=== PATIENT | female | born 1975 | race Caucasian/White ===

== ENCOUNTER 2019-09-09 14:52 | Outpatient (CLI) | payer OTHER, SELFPAY ==
--- NOTE | ~2019-09-09 | MR_ITS ---
EXAMINATION: MR brain/brain stem wo/w con EXAM DATE: 09/09/2019 15:52 INDICATION: Migraine headaches with increasing frequency. TECHNIQUE: Magnetic resonance imaging (MRI) of the brain/brain stem obtained without contrast. Sagit jacques T1, axial diffusion, gradient echo (T2*), T1, T2, FLAIR sequences obtained. Patient was then inj ected with 19 cc intravenous Multihance contrast. Axial and coronal postcontrast T1 weighted sequence s obtained. Comparison is made to prior examination from 07/19/2004. FINDINGS: There are no areas of restricted diffusion to suggest acute infarction. There is no acute hemorrhage seen on the T2*, a hemosiderin sensitive sequence. No intraparenchymal brain mass. The ve ntricles are normal in size. There are no extra-axial collections. Flow voids are seen in the cereb ral arteries on the T2-weighted sequences consistent with their expected patency. The orbits are unr emarkable. Soft tissue is unremarkable. There are no areas of abnormal enhancement on the postcont rast images. Small left maxillary sinus retention cyst. IMPRESSION: 1. Unremarkable brain MRI examination. Reviewed, dictated and finalized at location B. 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
[2019-09-09 15:40] LABS: Blood Urea Nitrogen 9 mg/dL (8-26); Estimated Glomerular Filt Rate > 60
== END 2019-09-09 14:53 | disposition home or self-care (01) ==
PROVIDERS: PCP Internal Medicine; Visit Provider Nurse Practitioner
DX: R51 Headache (principal)
CPT/HCPCS: 70553; A9577

== ENCOUNTER 2020-09-06 16:48 | Outpatient (CLI) | payer OTHER, SELFPAY ==
--- NOTE | ~2020-09-06 | MM_ITS ---
EXAMINATION: MM screening [facility] w jarred HISTORY: Screening TECHNIQUE: Craniocaudal and mediolateral oblique 3-D tomosynthesis images were obtained and synthetic 2-D images were generated. CAD analysis was submitted and interpreted. COMPARISON: Comparison to multiple prior studies sequentially, with oldest reviewed study dated 11/20. BREAST PARENCHYMAL COMPOSITION: There are scattered areas of fibroglandular density. FINDINGS: There is no evidence of suspicious mass, calcification, or architectural distortion to sugg est malignancy in either breast. There has been no suspicious interval change. IMPRESSION: 1. No mammographic evidence of malignancy. 2. Recommend routine screening mammography in one year. BI-RADS Category 1: Negative Reviewed, dictated and finalized at location A. 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
== END 2020-09-06 16:49 | disposition home or self-care (01) ==
LOC: ANHIMG 16:50
PROVIDERS: PCP Internal Medicine; Visit Provider Obstetrics & Gynecology
DX: Z12.31 Encounter for screening mammogram for malignant neoplasm of breast (principal)
CPT/HCPCS: 77063; 77067

== ENCOUNTER 2021-10-24 17:31 | Outpatient (CLI) | payer BC, OTHER, SELFPAY ==
--- NOTE | ~2021-10-24 | MM_ITS ---
EXAMINATION: MM screening [facility] BI w jarred HISTORY: Screening mammogram TECHNIQUE: Craniocaudal and mediolateral oblique 3-D tomosynthesis images were obtained and synthetic 2-D images were generated. CAD analysis was submitted and interpreted. COMPARISON: 09/06/2020, 05/07/2019 BREAST PARENCHYMAL COMPOSITION: There are scattered areas of fibroglandular density. FINDINGS: There is no suspicious mass, calcification, or architectural distortion to suggest malignan cy in either breast. There has been no suspicious interval change. IMPRESSION: 1. No mammographic evidence of malignancy. 2. Recommend routine screening mammography in one year. BI-RADS Category 1: Negative Reviewed, dictated and finalized at location A.
== END 2021-10-24 17:32 | disposition home or self-care (01) ==
LOC: ANHIMG 17:33
PROVIDERS: PCP Internal Medicine; Visit Provider Obstetrics & Gynecology
DX: Z12.31 Encounter for screening mammogram for malignant neoplasm of breast (principal)
CPT/HCPCS: 77063; 77067

== ENCOUNTER 2023-07-08 07:39 | Day surgery (SDC) | payer OTHER, SELFPAY ==
[2023-05-28 14:08] VITALS: BMI 35.9
[2023-06-24 11:05] VITALS: BMI 28.8
--- NOTE | 2023-07-03 12:57 | PM.HPGS ---
History of Present Illness History of Present Illness Consent: Risks, benefits, and alternatives have been discussed and questions answered. Patient agrees to proceed with procedure. Chief complaint: Z12.11 Screening neoplasm of colon Narrative: Tejal Arreaga is a 48 year old female Referred for colon cancer screening. Review of Systems Review of Systems: All systems reviewed & are unremarkable except as noted in HPI and below PMFSH Past Medical History Medical History Corns and callosities Migraine headache Surgical History Surgical History H/O foot surgery December 2018 S/P bilateral breast reduction S/P endometrial ablation Family History Family History Father Hypertension Carcinoma of colon Family history of irritable bowel syndrome Mother Family history of elevated blood lipids History of low potassium Grandparent Family history of coronary artery disease, Onset Age: 70 Diabetes mellitus Social History Social History Smoking status: Never smoker Second hand tobacco smoke exposure: No Alcohol intake: current Substance use: never Substance use type: does not use Lack of Transportation: No Lack of Food: Never True Current Housing: I Have Housing Concerned About Future Housing: No Difficulty Paying Gas/Electric Bills: No Difficulty Paying for Meds: No Currently Unemployed: No Education: Bachelor's Degree Living arrangements: with family Gender identity (if verbalized by the patient): Female Spiritual care concerns: No Meds Home Medications and Allergies Home Medications Medication Instructions Recorded Confirmed Type ubrogepant 50 mg tablet (Ubrelvy) 50 mg PO ONCE 05/29/23 06/24/23 History Allergies Allergy/AdvReac Type Severity Reaction Status Date / Time No Known Allergies Allergy Verified 07/08/23 08:40 Exam Resp: Auscultation: clear to auscultation bilaterally Cardio: Rate: regular rate Rhythm: regular rhythm GI: GI Palp: Yes Soft to palpation and No Tenderness to palpation present (GI) Assessment and Plan Assessment and plan (1) Colon cancer screening: Code(s): Z12.11 - Encounter for screening for malignant neoplasm of colon Status: Acute Assessment and Plan: Colonoscopy with possible biopsy or polypectomy or cautery or injection of substances.
[2023-07-08 08:42] VITALS: BP 110/84; PULSE 78; RESP 16; TEMP 36.6; O2SAT 100
[2023-07-08] MEDS: LACTATED RINGERS 1,000 ML 150 ML IV CONT (08:54)
--- NOTE | 2023-07-08 09:06 | P.PNAN_ITS ---
Anes - Initial Pre Proc Eval Procedure: Operation Date: 07/08/23 10:00 Proposed Procedures p Screening Colonoscopy - Herman Momin MD Date/Time: 07/08/23 09:06 Surgeon: Herman Momin MD Pre Op Diagnosis: Z12.11 Screening neoplasm of colon Patient Data Age: 48 Gender: F Height: 1.7 m Weight: 84 kg Last Vital Signs Temp 36.6 C 07/08/23 08:42 Pulse 78 07/08/23 08:42 Resp 16 07/08/23 08:42 BP 110/84 07/08/23 08:42 Pulse Ox 100 07/08/23 08:42 O2 Del Method Room Air 07/08/23 08:42 Allergies Allergy/AdvReac Type Severity Reaction Status Date / Time No Known Allergies Allergy Verified 07/08/23 08:40 Home Medications Medication Instructions Recorded Confirmed Type ubrogepant 50 mg tablet (Ubrelvy) 50 mg PO ONCE 05/29/23 06/24/23 History Patient hx anesthesia problems: none Family hx anesthesia problems: none Results Review: All pre-operative results and documents have been reviewed as part of the pre- operative evaluation. [facility] Past Medical History Medical History Corns and callosities Migraine headache Surgical History Surgical History H/O foot surgery December 2018 S/P bilateral breast reduction S/P endometrial ablation Family History Family History Father Hypertension Carcinoma of colon Family history of irritable bowel syndrome Mother Family history of elevated blood lipids History of low potassium Grandparent Family history of coronary artery disease, Onset Age: 70 Diabetes mellitus Social History Social History Smoking status: Never smoker Second hand tobacco smoke exposure: No Alcohol intake: current Substance use: never Substance use type: does not use Lack of Transportation: No Lack of Food: Never True Current Housing: I Have Housing Concerned About Future Housing: No Difficulty Paying Gas/Electric Bills: No Difficulty Paying for Meds: No Currently Unemployed: No Education: Bachelor's Degree Living arrangements: with family Gender identity (if verbalized by the patient): Female Spiritual care concerns: No Anes - Eval Final PreProcedure Day of Procedure 07/08/23 09:06 Patient weight: overweight Heart: regular rate and rhythm Lungs: clear to auscultation Airway: Mallampati scale class II Neurological: alert and oriented Last oral intake: >/= 8 hours ASA classification: II Emergent: no Anesthetic plan: proceed Anesthesia type and monitoring: general GIVS and standard monitoring Results Review: All pre-operative results and documents have been reviewed as part of the pre- operative evaluation. Informed Consent: The patient's anesthetic plan and its attendant risks and benefits were discusse d with the patient/family/POA. Questions were solicited and answers provided to the satisfaction of the patient/family/POA.
[2023-07-08 10:11] VITALS: BP 105/74; PULSE 72; RESP 16; O2SAT 100
[2023-07-08 10:21] VITALS: BP 122/79; PULSE 78; RESP 15; O2SAT 100
--- NOTE | 2023-07-08 10:26 | WPDANESPN ---
Anes - Prog Note Post-Op Date/Time: 07/08/23 10:26 Cardiovascular status: normal Respiratory status: normal Airway patency: baseline Mental status: baseline Post-Op hydration status: normal Vital Signs: Last Vital Signs Temp 36.6 C 07/08/23 08:42 Pulse 78 07/08/23 10:21 Resp 15 07/08/23 10:21 BP 122/79 07/08/23 10:21 Pulse Ox 100 07/08/23 10:21 O2 Del Method Room Air 07/08/23 10:21 Pain Score (VAS): 0 I/O: Intake & Output 07/07/23 07/08/23 07/08/23 23:59 07:59 15:59 Intake Total 300 Balance 300 Patient Feedback: Patient satisfied with anesthetic care.
[2023-07-08 10:31] VITALS: BP 119/76; PULSE 80; RESP 14; O2SAT 100
== END 2023-07-08 10:41 | disposition home or self-care (01) ==
PROVIDERS: PCP Nurse Practitioner Family; Visit Provider Internal Medicine Gastroenterology
PROC: 0DJD8ZZ Inspection of Lower Intestinal Tract, Via Natural or Artificial Opening Endoscopic (ICD-10-PCS; CPT 45378; principal; 2023-07-08 10:00)
DX: Z12.11 Encounter for screening for malignant neoplasm of colon (principal)
CPT/HCPCS: 45378

== ENCOUNTER 2024-09-02 09:26 | Outpatient (CLI) | payer BC, OTHER, SELFPAY ==
--- NOTE | ~2024-09-02 | MM_ITS ---
EXAMINATION: MM screening [facility] w jarred HISTORY: Screening TECHNIQUE: Craniocaudal and mediolateral oblique 3-D tomosynthesis images were obtained and synthetic 2-D images were generated. CAD analysis was submitted and interpreted. COMPARISON: Comparison to multiple prior studies sequentially, with oldest reviewed study dated 11/20. BREAST PARENCHYMAL COMPOSITION: Not dense: There are scattered areas of fibroglandular density. FINDINGS: There is no evidence of suspicious mass, calcification, or architectural distortion to sugg est malignancy in either breast. There has been no suspicious interval change. IMPRESSION: 1. No mammographic evidence of malignancy. 2. Recommend routine screening mammography in one year. BI-RADS Category 1: Negative Reviewed, dictated and finalized at location A. CAPPER
--- OUTSIDE RECORDS SUMMARY | 2024-09-03 22:28 | XMS_ITS | Data Portability ---
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 Lab HbA1c (hemoglobin A1c), blood 2022 023 [email or web address] [facility], [address] [place] [address], [address], 3 09:27:13 CBC w/ auto diff 2022 023 [email or web address] [facility], [address] [place] [address], [place], [address], 3 09:27:13 CMP, serum or plasma 2022 023 [email or web address] [facility], [address] [place] [address], [place], [address], 3 09:27:13 lipid panel, serum 2022 023 [email or web address] [facility], [address] [place] [address] 2, [place], [address], 3 09:27:13 TSH, ultra-sensi tive, serum 2022 023 [email or web address] [facility], [address] [place] [address] 2, [place], [address], 3 09:27:13 HbA1c (hemoglobin A1c), blood 2022 023 [email or web address] [facility], [address] [place] [address] 2, [place], [address], 3 09:27:13 CBC w/ auto diff 2022 023 LUIS E [facility], [address] [place] [address], [place], [address], 3 09:14:34 CMP, serum or plasma 2022 023 [email or web address] [facility], [address] [place] [address] 2, [place], [address], 3 09:27:13 lipid panel, serum 2022 023 [email or web address] [facility], [address] [place] [address] 2, [place], [address], 3 09:27:14 TSH, ultra-sensi tive, serum 2022 023 [email or web address] [facility], [address] [place] [address], [place], [address], 3 09:27:14 Referral None recorded. Procedures colonoscopy screening (PROC) 2022 023 [email or web address] Herman Momin MD, [address], [address], [place], [address], 3 16:58:55 colonoscopy screening (PROC) 2022 LUIS E Momin MD, [address], [address], [place], [address], 3 13:07:46 Surgeries None recorded. Imaging None recorded. Medication Orders Linzess 145 mcg capsule 2022 [facility], [address], [place], [place], [id number], 3 16:15:58 ondansetron 4 mg disintegrat ing tablet 2022 [place], [address], [place], [place], [id number], 3 16:18:14 Zithromax Z-Trever 250 mg tablet 2022 023 [place] [facility], [address], [place], [place], [id number], 3 16:16:02 Patient TargetsNo targets recorded. Patient Instructions Encounter Date Encounter Id Patient Instructions Last Modified By Organization Details Last Modified Time 05/22/2023 [id number] INFLUENZA VACCIN E Recommended today, but patient declined TD/TDAP Recommended today, patient declined Ordered Patient will get at local pharmacy/health department PNEUMONIA VACCINE Ordered Recommend ed today, patient declined Patient will get at local pharmacy/health department Recomm ended at age 67 SHINGLES MAMMOGRAM: Last Mammogram __ DEXA SCAN Recommended today, but patient declined Ordered No screening indicated CERVICAL SCREENING/PELVIC EXAMINATION Recommended today, but patient declined Ordered No screening necessary patient is up to date COLORECTAL SCREENING: Last Colonoscopy Recommended today, but patient declined Ordered DEPRESSION SCREENING Negative BMI Overweight continue your current weight loss efforts NUTRITION PHYSICAL ACTIVITY minimum of 10-20 minutes of activity that causes mild breathlessness/da y minimum of 20-30 minutes activity that causes mild breathlessness/da y minimum of 30-40 minutes of activity that causes mild breathlessness/da y VISION Ordered Recommend ed today ALCOHOL USE No alcohol use Occasional/So cial Use TOBACCO USE LUNG CANCER SCREENING Non Smoker-not indicated SEXUALLY ACTIVE Yes, Patient is in monogamous relationship HEPATITIS C SCREENING Not indicated GLUCOSE SCREENING Ordered LIPID SCREENING Ordered [email or web address] Not available 05/22/2023 17:01:54 Reason for Referral None Reported. Results Created Date Observation Date Name Description Value Unit Range Abnormal Flag Note LastModifiedBy Organization Detail LastModifiedTime Result Notes None recorded. Problems Name Problem SNOMED Code Status Onset Date Resolution Date Notes Provider Name and Address Organization Details Recorded Time Prediabetes 710887911 Active 2022 Abigail carreon, [employer] 3 16:35:44 Migraine 14896480 Active 2022 ANN L[facility]pezP-C [address], [address], [place], [address], [email or web address] 3 17:29:34 Obesity 613526304 Active 2022 ANN L[facility]pezP[facility] [address], [address], [place], [address], [email or web address] 3 17:29:37 Hyperlipidemia 58675764 Active 2022 ANN L[facility]pez[facility] [address], [address], [place], [address], [email or web address] 3 17:29:45 Acute pharyngitis 106338893 Active 2022 ANN L[facility]pez[facility] [address], [address], [place], [address], [email or web address] 3 16:14:55 Chronic constipation 305219357 Active 2022 ANN L[facility]pez[facility] [address], [address], [place], [address], [email or web address] 3 16:15:14 Problem Notes None recorded. Procedures Surgical History Date Name Laterality Status Provider Name and Address Organization Details Recorded Time Breast reduction completed Not Available [facility] 10/11/2022 00:28:10 Imaging Results None recorded. Procedure Notes None recorded. Medical Equipment None Reported. Allergies No known drug allergies Medications Name Sig Start Date Stop Date Status Note LastModified by Organization Details LastModified Time azithromyci n 250 mg tablet TAKE 2 TABLETS BY MOUTH FOR 1 DAY THEN TAKE 1 TABLET BY MOUTH DAILY FOR 4 DAYS active Not Available Not Available No t Available sumatriptan 50 mg tablet 09/20 completed Not Available Not Available Not Available clotrimazol e-betametha sone 1 %-0.05 % topical cream APPLY TO SOLES OF FEET TWICE DAILY FOR 2 WEEKS 09/20 completed Not Available Not Available Not Available dexamethaso ne sodium phosphate 4 mg/mL injection solution APPLY 1ML TO AFFECTED AREAS WITH IONTOPHRE SIS 09/20 completed Not Available Not Available Not Available ondansetron 4 mg disintegrat ing tablet DISSOLVE 1 TABLET ON THE TONGUE EVERY 6 TO 8 HOURS NEEDED active Not Available Not Available No t Available Novofine 32 32 gauge x 1/4 needle DIRECTED 08/01 completed Not Available Not Available Not Available Linzess 145 mcg capsule TAKE 1 CAPSULE BY MOUTH EVERY DAY IN THE MORNING active Not Available Not Available No t Available Saxenda 3 mg/0.5 mL (18 mg/3 mL) subcutaneou s pen injector INJECT 0.6MG UNDER SKIN EVERY DAY FOR 7 DAYS,INCR EASE BY 0.6MG DAILY EVERY 7 DAYS TO TARGET 3 MG PER DAY 06/21 completed Not Available Not Available Not Available Ubrelvy 100 mg tablet Prior authoriza tion is required active Not Available Not Available No t Available ID NOW COVID-19 Test Kit TEST DIRECTED TODAY 09/20 completed Not Available Not Available Not Available Mounjaro 7.5 mg/0.5 mL subcutaneou s pen injector INJECT 7.5 MG UNDER SKIN EVERY WEEK 01/09 completed appro sera. Not Available Not Available Not Available Mounjaro 5 mg/0.5 mL subcutaneou s pen injector INJECT 5 MG UNDER SKIN EVERY WEEK 01/09 completed Not Available Not Available Not Available Mounjaro 10 mg/0.5 mL subcutaneou s pen injector Inject 10mg SQ weekly 05/22 completed Not Available Not Available Not Available Vitals Date Recorded Body mass index (BMI) Body height Oxygen saturation Oxygen saturation in Arterial blood by Pulse oximetry Heart rate Body temperature Body weight Systolic blood pressure Diastolic blood pressure Provider Name and Address Organization Details Last Updated DateTime 2 31.3 kg/m2 172.72 cm 99 % 99 % 89 /min 97.7 [degF] 51737.0 3 g 122 mm[Hg] 78 mm[Hg] Not Available [facility] 3 00:28:15 Date Recorded Body mass index (BMI) Body height Oxygen saturation Oxygen saturation in Arterial blood by Pulse oximetry Heart rate Body temperature Body weight Systolic blood pressure Diastolic blood pressure Provider Name and Address Organization Details Last Updated DateTime 2 30.6 kg/m2 172.72 cm 99 % 99 % 80 /min 97.4 [degF] 93132.0 7 g 126 mm[Hg] 82 mm[Hg] Not Available [facility] 3 00:28:15 Date Recorded Body mass index (BMI) Body height Heart rate Body temperature Body weight Systolic blood pressure Diastolic blood pressure Provider Name and Address Organization Details Last Updated DateTime 2 29 kg/m2 172.72 cm 99 /min 97.3 [degF] 62698.1 4 g 118 mm[Hg] 84 mm[Hg] Not Available [facility] 3 00:28:15 Date Recorded Body height Body mass index (BMI) Body weight Body temperature Heart rate Oxygen saturation Oxygen saturation in Arterial blood by Pulse oximetry Systolic blood pressure Diastolic blood pressure Provider Name and Address Organization Details Last Updated DateTime 3 172.72 cm 27.7 kg/m2 80905.8 1 g 98.2 [degF] 92 /min 98 % 98 % 118 mm[Hg] 76 mm[Hg] DAVIDA Carr - S [place] [employer] [facility] 3 15:47:27 Date Recorded Body height Body mass index (BMI) Body weight Body temperature Heart rate Oxygen saturation Oxygen saturation in Arterial blood by Pulse oximetry Systolic blood pressure Diastolic blood pressure Provider Name and Address Organization Details Last Updated DateTime 3 172.72 cm 28 kg/m2 06453 g 97.6 [degF] 86 /min 98 % 98 % 124 mm[Hg] 78 mm[Hg] DAVIDA Carr - Far[place] [employer] [facility] 3 15:55:52 Social History Question Answer Notes LastModified by Organizat ion Details LastModified Time Tobacco Smoking Status Never Smoker Not Available [facility] 10/11/2022 00:27:24 What Is Your Level Of Alcohol Consumption? Occasional MIGRATION.[id number] Information not available 10/11/2022 Do You Wear A Helmet When Biking? No MIGRATION.79131 55511 Information not available 10/11/2022 What Is Your Level Of Caffeine Consumption? Occasional MIGRATION.95346 36252 Information not available 10/11/2022 In The 14 Days Before Symptom Onset, Have You Had Close Contact With A Laboratory-confi rmed COVID-19 While That Case Was Ill? No MIGRATION.43027 89533 Information not available 10/11/2022 In The 14 Days Before Symptom Onset, Have You Had Close Contact With A Person Who Is Under Investigation For COVID-19 While That Person Was Ill? No MIGRATION.22039 77780 Information not available 10/11/2022 What Type Of Diet Are You Following? REGULAR MIGRATION.78766 20286 Information not available 10/11/2022 What Is The Highest Grade Or Level Of School You Have Completed Or The Highest Degree You Have Received? 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 No MIGRATION.43199 65182 Information not available 10/11/2022 What Is The Fluoride Status Of Your Home? Unknown MIGRATION.36414 21965 Information not available 10/11/2022 Are There Any Guns Present In Your Home? No MIGRATION.90769 67652 Information not available 10/11/2022 Do You Use Insect Repellent Routinely? No MIGRATION.76022 29461 Information not available 10/11/2022 Where Do You Live? [place]House MIGRATION.32511 99862 Information not available 10/11/2022 What Was The Date Of Your Most Recent Tobacco Screening? 01/09/2023 [email or web address] Information not available 01/09/2023 Do You Have Any Pets? Yes MIGRATION.54710 12244 Information not available 10/11/2022 What Is Your Relationship Status? MIGRATION.69146 23753 Information not available 10/11/2022 Do You Use Your Seat Belt Or Car Seat Routinely? Yes MIGRATION.33569 76819 Information not available 10/11/2022 Do You Have Smoke And Carbon Monoxide Detectors In Your Home? Yes MIGRATION.07810 37825 Information not available 10/11/2022 Are You Passively Exposed To Smoke? No MIGRATION.12036 47400 Information not available 10/11/2022 Are There Any Smokers In Your House? No MIGRATION.10420 97594 Information not available 10/11/2022 Do You Feel Stressed (tense, Restless, Nervous, Or Anxious, Or Unable To Sleep At Night)? [id number] MIGRATION.08661 63599 Information not available 10/11/2022 Do You Use Any Illicit Or Recreational Drugs? No MIGRATION.11009 84678 Information not available 10/11/2022 Have You Recently Traveled Abroad? No MIGRATION.06557 88271 Information not available 10/11/2022 Do You Have Any Dietary Restrictions? No MIGRATION.03629 94527 Information not available 10/11/2022 Do You Or Have You Ever Used Any Other Forms Of Tobacco Or Nicotine? No MIGRATION.17548 28464 Information not available 10/11/2022 Sex: Unknown Functional Status Question Answer Note LastModified by Organizat ion Details LastModified Time What is your exercise level? Occasional [id number] Information not available 10/11/2022 Mental Status None recorded. Family History Nothing Reported. Medical History No medical history recorded. Gynecological HistoryNo gynecological history recorded. Obstetrics History GPAL:G 0 P 0 0 0 0 Past Encounters Encounter ID Performer Location Encounter Start Date Encounter Closed Date Diagnosis/Indication Diagnosis SNOMED-CT Code Diagnosis ICD10 Code Diagnosis Note [id number] [facility] [place] [address] 09/20/2021 00:00:00 09/20/2021 17:11:49 [id number] [facility] Jorgito garcia [facility] [place] [address] 11/15/2021 00:00:00 11/15/2021 16:48:39 [id number] [facility] Internal [facility] Jorgito garcia [address] [place] [address] [place] [address] 02/14/2022 00:00:00 02/14/2022 14:38:39 [id number] [facility] Internal [facility] Jorgito garcia [address] [place] [address] y , [place] [address] 06/13/2022 00:00:00 06/13/2022 13:14:05 [id number] [facility] Internal [facility] Jorgito garcia [address] [place] [address] [place] [address] 08/01/2022 00:00:00 08/01/2022 13:26:09 [id number] Tiffanie Hdz, LAMONT-C [facility] Internal [facility] Jorgito garcia [address] [place] [address] y , [place] [address] 01/09/2023 15:34:51 01/09/2023 16:07:21 Screening for malignant neoplasm of colon 833532426 Z12.11 Migraine 94669024 G43.90 9 on ubrelvy, side effects, risks, benefits explainedE R precaution sean for prn nausea Obesity 813340372 E66.9 recommend healthy, well balanced mealsfocus on lean meats, fresh vegetables , fresh fruits, whole grainsredu ce fast/proce ssed foods or eating out to no more than 1-2 times per weekaim to get 30 min of exercise most days of the week- walking is a great choicealso recommend resistance training 2-3 times per week we again discussed tracking her nutrition as I suspect she isn't aware of what she is eating daily- recommend my fitness pal, macrofacto r jose or similar Prediabetes 884337172 R7 3.03 on mounjaro, she is aware this is off label for prediabete s pt is aware of side effects, risks, benefitspt denies any personal or family history of MEN II or MTC, denies and personal history of pancreatit ispt knows to call the office if any severe n/v or abdominal pain she can continue the mounjaro until it is gone, but then her insurance will no longer pay and she will need to focus on lifestyle measures Hyperlipidemia 79503569 E78.5 mild no meds, continue diet and exercise [id number] Tiffanie Hdz, EXPRESSIVE THERAPIST-C [facility] Internal [facility] Jorgito garcia [address] [facility] , [place] [address] 05/22/2023 15:49:04 05/22/2023 16:20:49 Migraine 53697634 G43.909 on ubrelvy, side effects, risks, benefits derickE R precaution szofran for prn nausea Prediabetes 193303563 R7 3.03 no longer on mounjaro, insurance would not cover working on lifestyle measures Hyperlipidemia 11737110 E78.5 mild no meds, continue diet and exercise Screening for malignant neoplasm of colon 597755799 Z12.11 Acute pharyngitis 774125 003 J02.9 start zpackpush fluids, tylenol prncall office if no improvemen t after meds Chronic constipation 236 030633 K59.09 Start Linzess-sh e is aware of side effects, risks, benefitsSh e will call office in 1 month with an update Adult heal th examination 468247381 Z00.01 Depression screening 171 884419 Z13.31 Body mass index 25-29 - overweight 033235947 Z68.28 recommend healthy, well balanced mealsfocus on lean meats, fresh vegetables , fresh fruits, whole grainsredu ce fast/proce ssed foods or eating out to no more than 1-2 times per weekaim to get 30 min of exercise most days of the week- walking is a great choicealso recommend resistance training 2-3 times per week we again discussed tracking her nutrition as I suspect she isn't aware of what she is eating daily- recommend my fitness pal, macrofacto r jose or similar Health Concerns Section Related Observation LastModified by Organization Detai ls LastModified Time None Recorded Concern Status LastModified by Organization Details LastModified Time None Recorded Advance Directives Directive None Recorded Payers Encounter Date Sequence Insurance Name Policy Number Policy Cota Covered Member ID Cota Member ID Guarantor Name 01/09/2023 1 [facility] [id number] Ned Florentinoter [id number] Tejal Arreaga 05/22/2023 1 [facility] [id number] Ned Florentinoter [id number] Tejal Arreaga Notes Date Note Type Note Provider Name and Address Organization Details Recorded Time 01/09/2023 text/html Tejal presents today for follow-up. She continues to do very well on the Mounjaro. She had an insurance change and she got a letter in the mail that they are no longer going to cover that medication. They will also no longer cover any of the weight loss injectables. She reports she does have about 6 weeks left of the Mounjaro, and then she has some of her previous Saxenda in the fridge, so she plans to switch back to that until she runs out.She brought the letter with her and it looks like they were excluding all medications for weight loss and all injectable medications for any diagnosis other than diabetes. They will not cover them for prediabetes according to the letter. She reports she is aware of her portions but has not been tracking her nutrition or measuring/weighing her food. Migraines are well controlled on the Ubrelvy. She is due for labs. She is also due for colonoscopy now that she is age 47. Tiffanie Hdz, EXPRESSIVE THERAPIST-C [address] [facility], [facility] [address], [place], [address], [facility] [employer] [facility] 01/09/2023 17:02:34 05/22/2023 text/html Tejal presents today for follow-up. She is due for her annual wellness exam. She reports ever since she had to stop the Mounjaro, her chronic constipation has returned. This has been a lifelong problem for her. Was only ever controlled when she was on the Mounjaro. she is requesting a medication for this. She has tried multiple OTC with no improvement. I did order colonoscopy last visit, she still has not gotten that scheduled. She needs a new order. Ubrelvy is working well for her migraines p.r.n.. She also uses Zofran p.r.n. for nausea. She reports she has had a sore throat for about 3-4 days now. Her kids have been sick with strep. She denies any difficulty swallowing, denies any fever or chills, denies any chest pain. Denies any cough. Has tried OTC with no improvement. Tiffanie Hdz, EXPRESSIVE THERAPIST-C [address] [facility], [facility] [address], [place], [address], [facility] 05/22/2023 17:02:08 OBGyn Episode No OBEpisode recorded.
--- OUTSIDE RECORDS SUMMARY | 2024-09-03 22:29 | XMS_ITS | Clinical Summary ---
Author Organization [facility] [place] [address] Address [address] [place] [id number] Care Team Providers Care Rapid Extractor Operator Name Role Phone Bbee Villanueva NP Primary Care Provider [phone] Kalpesh Rivero MD Unavailable [phone] Allergies No known active allergies Medications ondansetron ODT (ZOFRAN-ODT) 4 mg disintegrating tablet ondansetron 4 mg disintegrating tablet DISSOLVE 1 TABLET ON THE TONGUE EVERY 6 TO 8 HOURS NEEDED Active ubrogepant (Ubrelvy) 100 mg tablet Take 1 tablet (100 mg total) by mouth once as needed for migraine May repeat dose once in 2 hours if no relief. Do not exceed 2 doses in 24 hours. 10 tablet 1 07/16/20 24 Active linaCLOtide (LINZESS) 145 mcg capsule Take 1 capsule (145 mcg total) by mouth daily 90 capsule 1 07/16/20 24 Active tirzepatide, weight loss, (Zepbound) 2.5 mg/0.5 mL pen injectorIndicatio ns:Wt Loss Mgmt, Pt with BMI 27-29 & Wt-Related Comorbidity Inject 0.5 mL (2.5 mg total) under the skin every 7 days 2 mL 08/21/19 25 Active liraglutide, weight loss, (Saxenda) 3 mg/0.5 mL (18 mg/3 mL) pen injector Saxenda 3 mg/0.5 mL (18 mg/3 mL) subcutaneous pen injector 025 Disconti nued(Alt ernate therapy) tirzepatide, weight loss, (Zepbound) 2.5 mg/0.5 mL pen injectorIndicatio ns:Wt Loss Mgmt, Pt with BMI 27-29 & Wt-Related Comorbidity Inject 0.5 mL (2.5 mg total) under the skin every 7 days 2 mL 08/20/19 25 025 Disconti nued(Reo rder) Active Problems Problem Noted Date Diagnosed Date Migraine Assessment & Plan (07/16/2024 4:36 PM ROLLER LEVELER): Overall stable on Ubrelvy prn. Has also tried Imitrex and Maxalt in the past but experienced side effect of tingling. Will refill Ubrelvy and provided patient with some samples today. Encounters Date Type Department Care Team Description 09/01/2024 Telephone [facility] Medical [facility] Primary Care at [address] [address] Bebe Villanueva NP PA for Nurtec 08/25/2024 Telephone [facility] Primary Care at [address] [address] Bebe Villanueva NP PA for Zepbound 08/21/2024 Telephone [facility] Primary Care at [address] [address] Bebe Villanueva NP PA for Ubrelvy 08/04/2024 E-Visit [facility] Primary Care at [address] [address] Anna Avilez MA Your Medications 08/01/2024 Orders Only [facility] Primary Care at [address] [address] Bebe Villanueva NP 07/16/2024 4:00 PM ROLLER LEVELER Office Visit [facility] Medical [facility] Primary Care at [address] [address] Bebe Villanueva NP Annual physical exam (Primary Dx); Migraine without aura and without status migrainosus, not intractable; Chronic idiopathic constipation; Sciatica of right side; Encounter for screening examination for intermediate hyperglycemia and diabetes mellitus; Encounter for hepatitis C screening test for low risk patient; Lipid screening; Thyroid disorder screen; Vitamin D deficiency from Last 3 Months Immunizations Name Administration Dates Next Due Influenza, Quadrivalent, Rut l Culture-based MDCK, Preservative Free, Antibiotic Free, Intramuscular 05/08/2019 Influenza, Quadrivalent, Spl it, Preservative Free, Intramuscular 04/22/2020 Influenza, Trivalent, IM (MDV) 04/26/2017 Influenza, Trivalent, Preser vative Free, Intramuscular 04/27/2016,05/24/2015 Influenza, Unspecified 08/12/2024(Deferr ed: Patient Refused),08/12/2023(Deferred: Patient Refused) Surgical History Surgery Date Site/Laterality Comments REDUCTION MAMMAPLASTY FOOT SURGERY Left Medical History Medical History Date Comments Migraine Family History Medical History Relation Name Comments Diabetes Father's Sister Hypertension Maternal Grandmother Hypertension Mother Heart attack Paternal Grandfather Diabetes Paternal Grandmother Relation Name Status Comments Father's Sister Maternal Grandmother Mother Paternal Grandfather Paternal Grandmother Social History Tobacco Use Types Packs/Day Years Used Date Smoking Tobacco: Never Smokeless Tobacco: Never PHQ-2 Answer Date Recorded PHQ-2 Total Score (If total score is 3 or more points, staff should administer the PHQ-9) 0 07/16/2024 Comments Unknown Sex and Gender Information Value Date Recorded Sex Assigned at Not on file Legal Sex Female 8:24 AM ROLLER LEVELER Gender Identity Female 04/14/2024 11:13 AM CDT Sexual Orientation Not on file Obstetrics History Last Filed Vital Signs Vital Sign Reading Time Taken Comments Blood Pressure 102/76 07/16/2024 4:04 PM ROLLER LEVELER Pulse 77 07/16/2024 4:04 PM ROLLER LEVELER Temperature 36.2 ??C (97.2 ??F) 07/16/2024 4:04 PM CS T Respiratory Rate - - Oxygen Saturation 98% 07/16/2024 4:04 PM ROLLER LEVELER Inhaled Oxygen Concentration - - Weight 89.4 kg (197 lb) 07/16/2024 4:04 PM ROLLER LEVELER Height 172.7 cm (5' 8 ) 07/16/2024 4:04 PM ROLLER LEVELER Body Mass Index 29.95 07/16/2024 4:04 PM ROLLER LEVELER Plan of Treatment Health Maintenance Due Date Last Done Comments DTaP/Tdap/Td Vaccine (1 - Tdap) 1988 Hepatitis B Screening 1995 Covid-19 Vaccine (3 - season) 2024 10/31/2020, 09/28/2020 Influenza Vaccine (#1) 2024 0, 05/08/2019, 04/26/2017, Additional history exists Breast Cancer Screening-Mammogram 09/16/2024 Postponed from 1977 (Patient declined, but will receive in the future) Cervical Cancer Screening 07/16/2025 07/16/2022, 08/2021 Depression Screening 07/16/2025 07/16/2024 Regular Well Visit/Exam 18-64 07/16/2025 07/16/2024 Colon Cancer Screening-Colonoscopy 07/08/2033 07/08/2023, 06/12/2023 Hepatitis C Screening Completed 08/01/2024 Pneumococcal vaccine <65 Aged Out No longer eligible based on patient's age to complete this topic Procedures Procedure Name Priority Date/Time Associated Diagnosis Comments VITAMIN D 25 HYDROXY Routine 08/01/2024 9:37 AM ROLLER LEVELER SPECIMEN STATUS REPORT Routine 9:37 AM ROLLER LEVELER THYROID FUNCTION CASCADE Routine 08/01/2024 9:37 AM ROLLER LEVELER HEMOGLOBIN A1C Routine 08/01/2024 9:37 AM ROLLER LEVELER LIPID PANEL Routine 08/01/2024 9:37 AM ROLLER LEVELER COMPREHENSIVE METABOLIC PANEL Routine 08/01/2024 9:37 AM ROLLER LEVELER CBC WITH AUTO DIFFERENTIAL Routine 08/01/2024 9:37 AM ROLLER LEVELER HEPATITIS C ANTIBODY Routine 08/01/2024 9:37 AM ROLLER LEVELER HM COLONOSCOPY Routine 07/08/2023 11:59 AM ROLLER LEVELER HM PAP SMEAR WITH HPV Routine 10/10/2021 12:56 PM ROLLER LEVELER from Last 3 Months or Most Recently Relevant to Health Maintenance Results * Specimen Status Report (08/01/2024 9:37 AM ROLLER LEVELER) Specimen Status Report Comment [facility] - 01 Comment: Zakia Healyv CMP14 Default Zakia Healyv CMP14 Default A hand-written panel/profile was received from your office. In accordance with the [facility] Ambiguous Test Code Policy dated February 2003, we have completed your order by using the closest currently or formerly recognized AMA panel. ??We have assigned Comprehensive Metabolic Panel (14), Test Code #207944 to this request. ??If this is not the testing you wished to receive on this specimen, please contact the [facility] Client Inquiry/Technical Services Department to clarify the test order. ??We appreciate your business. Zakia Fryrev LP Default Zakia Fryrev LP Default A hand-written panel/profile was received from your office. In accordance with the [facility] Ambiguous Test Code Policy dated February 2003, we have completed your order by using the closest currently or formerly recognized AMA panel. ??We have assigned Lipid Panel, Test Code #485708 to this request. If this is not the testing you wished to receive on this specimen, please contact the [facility] Client Inquiry/Technical Services Department to clarify the test order. ??We appreciate your business. 08/01/2024 9:37 AM ROLLER LEVELER 08/01/2024 Narrative [facility] - 08/02/2024 7:07 AM ROLLER LEVELER Performed at: ?? - [address] ??[id number] [employer]: Zander Bal PhD, Phone: ??[phone] us Bebe Villanueva NP LAB BLOOD ORDERABLES Final Resul t [facility] - 01 * Thyroid Function [place] (08/01/2024 9:37 AM ROLLER LEVELER) TSH 1.670 0.450 - 4.500 uIU/mL [facility] - 01 Comment: No apparent thyroid disorder. Additional testing not indicated. In rare instances, Secondary Hypothyroidism as well as Subclinical Hypothyroidism have been reported in some patients with normal TSH values. 08/01/2024 9:37 AM ROLLER LEVELER 08/01/2024 Narrative [facility] - 08/02/2024 7:07 AM ROLLER LEVELER Performed at: ??01 - [facility] [address] ??[id number] [employer]: Zander Bal PhD, Phone: ??[phone] us Bebe Villanueva YOUTH DEVELOPMENT SPECIALIST LAB BLOOD ORDERABLES Final Resul t [facility] - 01 * CBC with auto differential (08/01/2024 9:37 AM ROLLER LEVELER) WBC 5.3 3.4 - 10.8 x10E3/uL [facility] - 01 RBC 4.25 3.77 - 5.28 x10E6/uL [facility] - 01 Hgb 12.8 11.1 - 15.9 g/dL [facility] - 01 Hct 39.3 34.0 - 46.6 % [facility] - 01 MCV 93 79 - 97 fL [facility] - 01 MCH 30.1 26.6 - 33.0 pg [facility] - 01 MCHC 32.6 31.5 - 35.7 g/dL [facility] - 01 Rdw 12.3 11.7 - 15.4 % [facility] - 01 Platelets 253 150 - 450 x10E3/uL [facility] - 01 Neutrophils pct 57 Not Estab. % [facility] - 01 Lymphs pct 33 Not Estab. % [facility] - 01 Monocytes pct 8 Not Estab. % [facility] - 01 Eosinophils pct 1 Not Estab. % [facility] - 01 Basophil pct 1 Not Estab. % [facility] - 01 Neutrophil abs 3.0 1.4 - 7.0 x10E3/uL [facility] - 01 Lymphs (Absolute) 1.7 0.7 - 3.1 x10E3/uL [facility] - 01 Monocyte abs 0.4 0.1 - 0.9 x10E3/uL [facility] - 01 Eosinophils, abs 0.1 0.0 - 0.4 x10E3/uL [facility] - 01 Basophils, abs 0.1 0.0 - 0.2 x10E3/uL [facility] - 01 Immature Granulocytes 0 Not Estab. % [facility] - 01 Immature Grans (Abs) 0.0 0.0 - 0.1 x10E3/uL [facility] - 01 08/01/2024 9:37 AM ROLLER LEVELER 08/01/2024 Narrative [facility] - 08/02/2024 7:07 AM ROLLER LEVELER Performed at: ??01 - [facility] ??[id number] [employer]: Zander Bal PhD, Phone: ??[phone] Bebe Villanueva NP LAB BLOOD ORDERABLES Final Resul t Performing Organization Address [facility] Co de Phone Number [facility] * Hepatitis C antibody (08/01/2024 9:37 AM ROLLER LEVELER) Hep C Ab Non Reactive Non Reactive [facility] - Comment: HCV antibody alone does not differentiate between previously resolved infection and active infection. Equivocal and Reactive HCV antibody results should be followed up with an HCV RNA test to support the diagnosis of active HCV infection. 08/01/2024 9:37 AM ROLLER LEVELER 08/01/2024 Narrative [facility] - 08/02/2024 8:07 AM ROLLER LEVELER Performed at: ??01 - [facility] [address] ??[id number] [employer]: Zander Bal PhD, Phone: ??[phone] Bebe Villanueva NP LAB MICROBIOLOGY - GENERAL ORDER ALIA Final Result Performing Organization Address [facility] Co de Phone Number [facility] * (ABNORMAL) Vitamin D 25 hydroxy (08/01/2024 9:37 AM ROLLER LEVELER) Vitamin D, 25-Hydroxy 25.6(L) 30.0 - 100.0 ng/mL [facility] - 01 Comment: Vitamin D deficiency has been defined by the [place] of [employer] and an Endocrine Society practice guideline as a level of serum 25-OH vitamin D less than 20 ng/mL (1,2). The Endocrine Society went on to further define vitamin D insufficiency as a level between 21 and 29 ng/mL (2). 1. IOM ([place] of [employer]). 2010. Dietary reference ?? intakes for calcium and D. [place]: The ?? National Academies Press. 2. Victor Hugo MF, Dixie BRISENO, Ayan BENITO, et al. ?? Evaluation, treatment, and prevention of vitamin D ?? deficiency: an Endocrine Society clinical practice ?? guideline. JCEM. 2010; 96(7):1911-30. 08/01/2024 9:37 AM ROLLER LEVELER 08/01/2024 Narrative [facility] - 08/02/2024 8:07 AM ROLLER LEVELER Performed at: ??01 - [facility] ??[id number] [employer]: Zander Bal PhD, Phone: ??[phone] Bebe Villanueva NP LAB BLOOD ORDERABLES Final Resul t Performing Organization Address [facility] de Phone Number [facility] - * (ABNORMAL) Hemoglobin A1c (08/01/2024 9:37 AM ROLLER LEVELER) Hgb A1C 5.8(H) 4.8 - 5.6 % [facility] - Comment: ? Prediabetes: 5.7 - 6.4 ? Diabetes: >6.4 ? Glycemic control for adults with diabetes: <7.0 08/01/2024 9:37 AM ROLLER LEVELER 08/01/2024 Narrative [facility] - 08/02/2024 7:07 AM ROLLER LEVELER Performed at: ?? - [facility] [address] ??[id number] [employer]: Zander Bal PhD, Phone: ??[phone] us Bebe Villanueva NP LAB BLOOD ORDERABLES Final Resul t Performing Organization Address [facility] de Phone Number [facility] - * (ABNORMAL) Lipid panel (08/01/2024 9:37 AM ROLLER LEVELER) Cholesterol 202(H) 100 - 199 mg/dL [facility] - 01 Triglycerides 115 0 - 149 mg/dL [facility] - 01 HDL Cholesterol 50 >39 mg/dL [facility] - 01 VLDL 21 5 - 40 mg/dL [facility] - 01 LDL, calculated 131(H) 0 - 99 mg/dL [facility] - 01 08/01/2024 9:37 AM ROLLER LEVELER 08/01/2024 Narrative [facility] - 08/02/2024 7:07 AM ROLLER LEVELER Performed at: ?? - [facility] [address] ??[id number] [employer]: Zander Bal PhD, Phone: ??[phone] us Bebe Villanueva NP LAB BLOOD ORDERABLES Final Resul t [facility] - 01 * Comprehensive metabolic panel (08/01/2024 9:37 AM ROLLER LEVELER) Glucose 95 70 - 99 mg/dL [facility] - 01 BUN 9 6 - 24 mg/dL [facility] - 01 Creatinine, Serum 0.80 0.57 - 1.00 mg/dL [facility] - 01 eGFR 91 >59 mL/min/1.73 [facility] - 01 BUN/creat ratio 11 9 - 23 [facility] - 01 Sodium 137 134 - 144 mmol/L [facility] - 01 Potassium, sr 4.3 3.5 - 5.2 mmol/L [facility] - 01 Chloride 103 96 - 106 mmol/L [facility] - 01 CO2 23 20 - 29 mmol/L [facility] - 01 Calcium 9.1 8.7 - 10.2 mg/dL [facility] - 01 Protein, sr 6.7 6.0 - 8.5 g/dL [facility] - 01 Albumin 4.4 3.9 - 4.9 g/dL [facility] - 01 Globulin, Total 2.3 1.5 - 4.5 g/dL [facility] - 01 Bilirubin, Total 0.5 0.0 - 1.2 mg/dL [facility] - 01 Alk phos 56 44 - 121 IU/L [facility] - 01 AST 20 0 - 40 IU/L [facility] - 01 ALT 17 0 - 32 IU/L [facility] - 01 08/01/2024 9:37 AM ROLLER LEVELER 08/01/2024 Narrative [facility] - 08/02/2024 7:07 AM ROLLER LEVELER Performed at: ??01 - [facility] [address] ??[id number] [employer]: Zander Bal PhD, Phone: ??[phone] us Bebe Villanueva YOUTH DEVELOPMENT SPECIALIST LAB BLOOD ORDERABLES Final Resul t [facility] - 01 * HM COLONOSCOPY (07/08/2023 11:59 AM ROLLER LEVELER) us Historical Provider HEALTH MAINTENANCE Final Result * HM PAP SMEAR WITH HPV (10/10/2021 12:56 PM ROLLER LEVELER) Kalpesh Rivero MD HEALTH MAINTENANCE Final Re sult from Last 3 Months or Most Recently Relevant to Health Maintenance Insurance [facility] CHO[facility] PLUS [facility] PLUS Care Teams Rapid Extractor Operator Relationship Specialty Start Date End Date Bebe Villanueva NP [address] [facility] [address] [place] [address] PCP - General Family Medicine 07/16/24 Kalpesh Rivero MD [address] [place] [address] Referring Physician Obstetrics and Gynecology 07/16/24
--- OUTSIDE RECORDS SUMMARY | 2024-09-03 22:29 | XMS_ITS | Encounter Summary ---
Author Organization [facility] Healthcare Address [address] [place] [address] Care Team Providers Care Fork Lift Technician Name Role Phone Bebe Villanueva NP Primary Care Provider [phone] Kalpesh Rivero MD Unavailable [phone] Reason for Visit * Reason Onset Date Comments JAVIRE kirby [facility] 09/01/2024 Encounter Details Date Type Department Care Team (Late st Contact Info) Description 09/01/2024 Telephone [facility] Medical Group Primary Care at [address] [address] Bebe Villanueva NP [address] [place] [address] [address] [place] [address] PA for [facility] Social History Tobacco Use Types Packs/Day Years Used Date Smoking Tobacco: Never Smokeless Tobacco: Never PHQ-2 Answer Date Recorded PHQ-2 Total Score (If total score is 3 or more points, staff should administer the PHQ-9) 0 07/16/2024 Comments Unknown Sex and Gender Information Value Date Recorded Sex Assigned at Not on file Legal Sex Female 8:24 AM DONOR SERVICES COORDINATOR Gender Identity Female 04/14/2024 11:13 AM CDT Sexual Orientation Not on file documented as of this encounter Miscellaneous Notes * Telephone Encounter - Kimberly Mcrae MA - 09/01/2024 9:26 AM DONOR SERVICES COORDINATOR Outcome Approved today by [employer] 2017 IDPDP Request Reference Number: [id number]. UBRELVY TAB 100MG is approved through 11/30/2024. Your patient may now fill this prescription and it will be covered. Authorization Expiration Date: 11/30/2024 R SERVICES COORDINATOR * Telephone Encounter - Kimberly Mcrae MA - 09/01/2024 9:07 AM DONOR SERVICES COORDINATOR Prior authorization has been started through cover my meds. Waiting for determination. Your information has been sent to [employer]. [employer] is reviewing your [place] request. Typically an electronic response will be received within 24-72 hours. To check for an update later, open this request from your dashboard. You may close this dialog and return to your dashboard to perform other tasks. R SERVICES COORDINATOR documented in this encounter Plan of Treatment Not on file documented as of this encounter Visit Diagnoses Not on filedocumented in this encounter Care Teams Fork Lift Technician Relationship Specialty Start Date End Date Bebe Villanueva NP [address] [facility] [address] [place] [address] PCP - General Family Medicine 07/16/24 Kalpesh Rivero MD [address] [facility] [address] [place] [address] Referring Physician Obstetrics and Gynecology 07/16/24 documented as of this encounter
--- OUTSIDE RECORDS SUMMARY | 2024-09-03 22:29 | XMS_ITS | Referral Summary ---
Author Organization [facility] [address] Address [address] [place] [id number] Care Team Providers Care Insulation Cutter And Former Name Role Phone Bebe Villanueva NP Primary Care Provider Kalpesh Rivero MD Unavailable [phone] Encounters Date Type Department Care Team Description 09/01/2024 Telephone [facility] Primary Care at [address] [address] Bebe Villanueva NP PA for Nurtec 08/25/2024 Telephone [facility] Primary Care at [address] [address] Bebe Villanueva NP PA for Zepbound 08/21/2024 Telephone [facility] Primary Care at [address] [address] Bebe Villanueva NP PA for Ubrelvy 08/04/2024 E-Visit [facility] Primary Care at [address] [address] Anna Avilez MA Your Medications 08/01/2024 Orders Only [facility] Primary Care at [address] [address] Bebe Villanueva NP 07/16/2024 4:00 PM BEEF CATTLE FARM MANAGER Office Visit [facility] Medical [facility] Primary Care at [address] [phone] Bebe Villanueva NP Annual physical exam (Primary Dx); Migraine without aura and without status migrainosus, not intractable; Chronic idiopathic constipation; Sciatica of right side; Encounter for screening examination for intermediate hyperglycemia and diabetes mellitus; Encounter for hepatitis C screening test for low risk patient; Lipid screening; Thyroid disorder screen; Vitamin D deficiency from Last 3 Months Allergies No known active allergies Medications ondansetron [...] Migraine Assessment & Plan (07/16/2024 4:36 PM BEEF CATTLE FARM MANAGER): Overall stable on Ubrelvy prn. Has also tried Imitrex and Maxalt in the past but experienced side effect of tingling. Will refill Ubrelvy and provided patient with some samples today. Immunizations Name Administration Dates Next Due Influenza, Quadrivalent, Rut l Culture-based MDCK, Preservative Free, Antibiotic Free, Intramuscular 05/08/2019 Influenza, Quadrivalent, Spl it, Preservative Free, Intramuscular 04/22/2020 Influenza, Trivalent, IM (MDV) 04/26/2017 Influenza, Trivalent, Preser vative Free, Intramuscular 04/27/2016,05/24/2015 Influenza, Unspecified 08/12/2024(Deferr ed: Patient Refused),08/12/2023(Deferred: Patient Refused) Social History Tobacco Use Types Packs/Day Years Used Date Smoking Tobacco: Never Smokeless Tobacco: Never PHQ-2 Answer Date Recorded PHQ-2 Total Score (If total score is 3 or more points, staff should administer the PHQ-9) 0 07/16/2024 Comments Unknown Sex and Gender Information Value Date Recorded Sex Assigned at Not on file Legal Sex Female 8:24 AM BEEF CATTLE FARM MANAGER Gender Identity Female 04/14/2024 11:13 AM CDT Sexual Orientation Not on file Last Filed Vital Signs Vital Sign Reading Time Taken Comments Blood Pressure 102/76 07/16/2024 4:04 PM BEEF CATTLE FARM MANAGER Pulse 77 07/16/2024 4:04 PM BEEF CATTLE FARM MANAGER Temperature 36.2 ??C (97.2 ??F) 07/16/2024 4:04 PM CS T Respiratory Rate - - Oxygen Saturation 98% 07/16/2024 4:04 PM BEEF CATTLE FARM MANAGER Inhaled Oxygen Concentration - - Weight 89.4 kg (197 lb) 07/16/2024 4:04 PM BEEF CATTLE FARM MANAGER Height 172.7 cm (5' 8 ) 07/16/2024 4:04 PM BEEF CATTLE FARM MANAGER Body Mass Index 29.95 07/16/2024 4:04 PM BEEF CATTLE FARM MANAGER Plan of Treatment Not on file Procedures Procedure Name Priority Date/Time Associated Diagnosis Comments VITAMIN D 25 HYDROXY Routine 08/01/2024 9:37 AM BEEF CATTLE FARM MANAGER SPECIMEN STATUS REPORT Routine 9:37 AM BEEF CATTLE FARM MANAGER THYROID FUNCTION CASCADE Routine 08/01/2024 9:37 AM BEEF CATTLE FARM MANAGER HEMOGLOBIN A1C Routine 08/01/2024 9:37 AM BEEF CATTLE FARM MANAGER LIPID PANEL Routine 08/01/2024 9:37 AM BEEF CATTLE FARM MANAGER COMPREHENSIVE METABOLIC PANEL Routine 08/01/2024 9:37 AM BEEF CATTLE FARM MANAGER CBC WITH AUTO DIFFERENTIAL Routine 08/01/2024 9:37 AM BEEF CATTLE FARM MANAGER HEPATITIS C ANTIBODY Routine 08/01/2024 9:37 AM BEEF CATTLE FARM MANAGER HM COLONOSCOPY Routine 07/08/2023 11:59 AM BEEF CATTLE FARM MANAGER HM PAP SMEAR WITH HPV Routine 10/10/2021 12:56 PM BEEF CATTLE FARM MANAGER from Last 3 Months or Most Recently Relevant to Health Maintenance Results * Specimen Status Report (08/01/2024 9:37 AM BEEF CATTLE FARM MANAGER) Specimen Status Report Comment [facility] - 01 Comment: Ambmarcela Abbrev CMP14 Default Ambig Abbrev CMP14 Default A hand-written panel/profile was received from your office. In accordance with the [facility] Ambiguous Test Code Policy dated February 2003, we have completed your order by using the closest currently or formerly recognized AMA panel. ??We have assigned Comprehensive Metabolic Panel (14), Test Code #293303 to this request. ??If this is not the testing you wished to receive on this specimen, please contact the [facility] Client Inquiry/Technical Services Department to clarify the test order. ??We appreciate your business. Ambig Abbrev LP Default Ambig Abbrev LP Default A hand-written panel/profile was received from your office. In accordance with the [facility] Ambiguous Test Code Policy dated February 2003, we have completed your order by using the closest currently or formerly recognized AMA panel. ??We have assigned Lipid Panel, Test Code #858958 to this request. If this is not the testing you wished to receive on this specimen, please contact the [facility] Client Inquiry/Technical Services Department to clarify the test order. ??We appreciate your business. 08/01/2024 9:37 AM BEEF CATTLE FARM MANAGER 08/01/2024 Narrative [facility] - 08/02/2024 7:07 AM BEEF CATTLE FARM MANAGER Performed at: ??01 - [facility] [address] ??[id number] Park Interpreter: Zander Bal PhD, Phone: ??[phone] Bebe Villanueva MOTORBOAT MECHANIC HELPER LAB BLOOD ORDERABLES Final Resul t Performing Organization Address [facility] de Phone Number [facility] - * Thyroid Function [place] (08/01/2024 9:37 AM BEEF CATTLE FARM MANAGER) TSH 1.670 0.450 - 4.500 uIU/mL [facility] - 01 Comment: No apparent thyroid disorder. Additional testing not indicated. In rare instances, Secondary Hypothyroidism as well as Subclinical Hypothyroidism have been reported in some patients with normal TSH values. 08/01/2024 9:37 AM BEEF CATTLE FARM MANAGER 08/01/2024 Narrative [facility] - 08/02/2024 7:07 AM BEEF CATTLE FARM MANAGER Performed at: ??01 - [facility] [address] ??[id number] Park Interpreter: Zander Bal PhD, Phone: ??[phone] us Bebe Villanueva MOTORBOAT MECHANIC HELPER LAB BLOOD ORDERABLES Final Resul t Performing Organization Address [facility] Phone Number [facility] - 01 * CBC with auto differential (08/01/2024 9:37 AM BEEF CATTLE FARM MANAGER) WBC 5.3 3.4 - 10.8 x10E3/uL [facility] [...] x10E3/uL [facility] - 01 08/01/2024 9:37 AM BEEF CATTLE FARM MANAGER 08/01/2024 Narrative [facility] - 08/02/2024 7:07 AM BEEF CATTLE FARM MANAGER Performed at: ??01 - [facility] ??[id number] Park Interpreter: Zander Bal PhD, Phone: ??[phone] us Bebe Villanueva MOTORBOAT MECHANIC HELPER LAB BLOOD ORDERABLES Final Resul t [facility] * Hepatitis C antibody (08/01/2024 9:37 AM BEEF CATTLE FARM MANAGER) Hep C Ab Non Reactive Non Reactive [facility] - 01 Comment: HCV antibody alone does not differentiate between previously resolved infection and active infection. Equivocal and Reactive HCV antibody results should be followed up with an HCV RNA test to support the diagnosis of active HCV infection. 08/01/2024 9:37 AM BEEF CATTLE FARM MANAGER 08/01/2024 Narrative [facility] - 08/02/2024 8:07 AM BEEF CATTLE FARM MANAGER Performed at: ??01 - [facility] ??[id number] Park Interpreter: Zadner Bal PhD, Phone: ??[phone] Bebe Villanueva NP LAB MICROBIOLOGY - GENERAL ORDER ALIA Final Result Performing Organization Address [facility] de Phone Number [facility] - * (ABNORMAL) Vitamin D 25 hydroxy (08/01/2024 9:37 AM BEEF CATTLE FARM MANAGER) Vitamin D, 25-Hydroxy 25.6(L) 30.0 - 100.0 ng/mL [facility] - Comment: Vitamin D deficiency has been defined by the [place] of Medicine and an Endocrine Society practice guideline as a level of serum 25-OH vitamin D less than 20 ng/mL (1,2). The Endocrine Society went on to further define vitamin D insufficiency as a level between 21 and 29 ng/mL (2). 1. IOM ([place] of Medicine). 2010. Dietary reference ?? intakes for calcium and D. [place]: The ?? National Academies Press. 2. Victor Hugo MF, [place], Ayan BENITO, et al. ?? Evaluation, treatment, and prevention of vitamin D ?? deficiency: an Endocrine Society clinical practice ?? guideline. JCEM. 2011 Feb; 96(7):1911-30. 08/01/2024 9:37 AM BEEF CATTLE FARM MANAGER 08/01/2024 Narrative [facility] - 08/02/2024 8:07 AM BEEF CATTLE FARM MANAGER Performed at: ??01 - [facility] [address] ??[id number] Park Interpreter: Zander Bal PhD, Phone: ??[phone] Bebe Villanueva NP LAB BLOOD ORDERABLES Final Resul t Performing Organization Address [facility] Co de Phone Number [facility] - * (ABNORMAL) Hemoglobin A1c (08/01/2024 9:37 AM BEEF CATTLE FARM MANAGER) Hgb A1C 5.8(H) 4.8 - 5.6 % [facility] - 01 Comment: ? Prediabetes: 5.7 - 6.4 ? Diabetes: >6.4 ? Glycemic control for adults with diabetes: <7.0 08/01/2024 9:37 AM BEEF CATTLE FARM MANAGER 08/01/2024 Narrative [facility] - 08/02/2024 7:07 AM BEEF CATTLE FARM MANAGER Performed at: ??01 - [facility] [address] ??[id number] Park Interpreter: Zander Bal PhD, Phone: ??[phone] Bebe Villanueva MOTORBOAT MECHANIC HELPER LAB BLOOD ORDERABLES Final Resul t Performing Organization Address [facility] de Phone Number [facility] - 01 * (ABNORMAL) Lipid panel (08/01/2024 9:37 AM BEEF CATTLE FARM MANAGER) Cholesterol 202(H) 100 - 199 mg/dL [facility] - 01 Triglycerides 115 0 - 149 mg/dL [facility] - 01 HDL Cholesterol 50 >39 mg/dL [facility] - 01 VLDL 21 5 - 40 mg/dL [facility] - 01 LDL, calculated 131(H) 0 - 99 mg/dL [facility] - 01 08/01/2024 9:37 AM BEEF CATTLE FARM MANAGER 08/01/2024 Narrative [facility] - 08/02/2024 7:07 AM BEEF CATTLE FARM MANAGER Performed at: ??01 - [facility] [address] ??[id number] Park Interpreter: Zander Bal PhD, Phone: ??[phone] us Bebe Villanueva MOTORBOAT MECHANIC HELPER LAB BLOOD ORDERABLES Final Resul t Performing Organization Address [facility] Co de Phone Number [facility] - 01 * Comprehensive metabolic panel (08/01/2024 9:37 AM BEEF CATTLE FARM MANAGER) Glucose 95 70 - 99 mg/dL [facility] [...] IU/L [facility] - 01 08/01/2024 9:37 AM BEEF CATTLE FARM MANAGER 08/01/2024 Narrative [facility] - 08/02/2024 7:07 AM BEEF CATTLE FARM MANAGER Performed at: ?? - [facility] [address] ??[id number] Park Interpreter: Zander Bal PhD, Phone: ??[phone] Bebe Villanueva NP LAB BLOOD ORDERABLES Final Resul t [facility] - 01 * HM COLONOSCOPY (07/08/2023 11:59 AM BEEF CATTLE FARM MANAGER) Historical Provider HEALTH MAINTENANCE Final Result * HM PAP SMEAR WITH HPV (10/10/2021 12:56 PM BEEF CATTLE FARM MANAGER) Kalpesh Rivero MD HEALTH MAINTENANCE Final Re sult from Last 3 Months or Most Recently Relevant to Health Maintenance Insurance [facility] CHOICE PLUS [facility] H[facility]/PPO Address: [address] [place], [place] [id number] [facility] CHOICE PLUS [facility] HMO/PPO Address: [address] [place], [place] [phone] Care Teams Insulation Cutter And Former Relationship Specialty Start Date End Date Bebe Villanueva NP [address] [facility] [address] [place] [address] PCP - General Family Medicine 07/16/24 Kalpesh Rivero MD [address] [place] [address] Referring Physician Obstetrics and Gynecology 07/16/24
== END 2024-09-02 09:27 | disposition home or self-care (01) ==
PROVIDERS: PCP Obstetrics & Gynecology; Visit Provider Obstetrics & Gynecology
DX: Z12.31 Encounter for screening mammogram for malignant neoplasm of breast (principal)
CPT/HCPCS: 77063; 77067